=== PATIENT | female | born 1995 | race African-American/Black ===

== ENCOUNTER 2017-07-17 15:31 | Emergency (ER) | payer BC ==
[~2017-07-17 15:31] MED LIST: PYRI200T4 PO; SULF-154 PO
[2017-07-17 15:39] VITALS: BP 130/79; PULSE 110; RESP 14; TEMP 98.5; O2SAT 100
--- NOTE | 2017-07-17 16:12 | PD ---
HPI Chief Complaint: Construction Mgr Problem/Complaint Time Seen by Provider: 15:54 Travel History International Travel<30 days: No Contact w/Intl Traveler<30days: No Traveled to known affect area: No History of Present Illness HPI 21-year-old female with no significant medical history presents emergency department for evaluation of lower abdominal cramping intermittently 1 week. Patient has also been nauseous without vomiting. Patient states her last menstrual cycle was June 10, 2017. She denies any vaginal bleeding or discharge. She does report urinary frequency. No hematuria. No dysuria. Patient has no other symptoms to report. PFSH Past Medical History Medical History: Denies Significant Hx ?: Unknown Social History Alcohol Use: Yes Tobacco Use: No Allergies-Medications (Allergen,Severity, Reaction): Coded Allergies: No Known Allergies (Unverified , 06/04/14) Reported Meds & Prescriptions Reported Meds & Active Scripts Active Pyridium (Phenazopyridine HCl) 200 Mg Tab 200 Mg PO Q8 Septra Ds (Trimethoprim/Sulfamethoxazole) Tab 1 Tab PO BID Review of Systems Except as stated in HPI: all other systems reviewed are Neg Physical Exam Narrative GENERAL: Well-nourished female patient, no acute distress SKIN: Focused skin assessment warm/dry. HEAD: Atraumatic. Normocephalic. EYES: Pupils equal and round. No scleral icterus. No injection or drainage. ENT: No nasal bleeding or discharge. Mucous membranes pink and moist. NECK: Trachea midline. No JVD. CARDIOVASCULAR: Tachycardic rate and rhythm. No murmur appreciated. RESPIRATORY: No accessory muscle use. Clear to auscultation. Breath sounds equal bilaterally. GASTROINTESTINAL: Abdomen soft, non-tender, nondistended. Hepatic and splenic margins not palpable. No guarding. No rebound tenderness. GENITOURINARY: Normal external genitalia without lesions or erythema. Vaginal vault with a thick milky discharge.. Cervical os was closed without drainage. No cervical motion tenderness. Uterus nontender and nonenlarged. Bilateral adnexa nontender without masses. MUSCULOSKELETAL: No obvious deformities. No clubbing. No cyanosis. No edema. NEUROLOGICAL: Awake and alert. No obvious cranial nerve deficits. Motor grossly within normal limits. Normal speech. PSYCHIATRIC: Appropriate mood and affect; insight and judgment normal. Data Data Last Documented VS Vital Signs Date Time Temp Pulse Resp B/P (MAP) Pulse Ox O2 Delivery O2 Flow Rate FiO2 07/17/17 15:39 98.5 110 14 130/79 (96) 100 Orders Orders Urinalysis - C+S If Indicated (07/17/17 16:06) Ed Urine Pregnancytest Poc (07/17/17 16:06) Beta Hcg (Quant/Titer) (07/17/17 16:08) Complete Blood Count With Diff (07/17/17 16:08) Basic Metabolic Panel (Bmp) (07/17/17 16:08) Gc And Chlamydia Pcr (07/17/17 16:08) Complete Rh (07/17/17 16:08) Us Pelvis (Ques Preg/Ectopic) (07/17/17 ) Wet Prep Profile (07/17/17 16:08) Iv Access Insert/Monitor (07/17/17 16:08) Ecg Monitoring (07/17/17 16:08) Sodium Chlor 0.9% 1000 Ml Inj (Ns 1000 M (07/17/17 16:15) Ceftriaxone Inj (Rocephin Inj) (07/17/17 16:30) Azithromycin Powd Pack (Zithromax Powd P (07/17/17 16:30) MDM Medical Decision Making Medical Screen Exam Complete: Yes Emergency Medical Condition: Yes Medical Record Reviewed: Yes Differential Diagnosis intrauterine versus ectopic versus UTI versus menstrual cramps versus STD Narrative Course 21-year-old female presents emergency department for evaluation of lower abdominal cramping. Patient appears without distress. Vital signs are stable. Urine test is positive. Abdominal exam is benign. Discussed the patient my attending physician. We will move forward with lab work, ultrasound , and pelvic examination. Pelvic exam is with normal external genitalia. There is a large amount of a thick white milky discharge within the vaginal vault. Cervix is closed. There is no cervical motion tenderness. Patient will be treated empirically for gonorrhea and chlamydia. 1630 patient is signed out to my colleague Sathya Suero PA-C. Dispositional plan his judgment. Condition: Stable VerduzcoMiri almanza AJIT July 17, 2017 16:12
[2017-07-17] MEDS ORDERED: SODIUM CHLOR 0.9% 1000 ML INJ 1,000 ML IV ONE (16:15)
[2017-07-17] MEDS ORDERED: AZITHROMYCIN PWD FOR SUSP 1 GM PACKET PO ONE (16:30)
[2017-07-17] MEDS ORDERED: cefTRIAXone 250 MG VIAL IM ONE (16:30)
--- NOTE | 2017-07-17 16:31 | PD ---
Data Data Last Documented VS Vital Signs Date Time Temp Pulse Resp B/P (MAP) Pulse Ox O2 Delivery O2 Flow Rate FiO2 07/17/17 15:39 98.5 110 14 130/79 (96) 100 Orders Orders Urinalysis - C+S If Indicated (07/17/17 16:06) Ed Urine Pregnancytest Poc (07/17/17 16:06) Beta Hcg (Quant/Titer) (07/17/17 16:08) Complete Blood Count With Diff (07/17/17 16:08) Basic Metabolic Panel (Bmp) (07/17/17 16:08) Gc And Chlamydia Pcr (07/17/17 16:08) Complete Rh (07/17/17 16:08) Us Pelvis (Ques Preg/Ectopic) (07/17/17 ) Wet Prep Profile (07/17/17 16:08) Iv Access Insert/Monitor (07/17/17 16:08) Ecg Monitoring (07/17/17 16:08) Sodium Chlor 0.9% 1000 Ml Inj (Ns 1000 M (07/17/17 16:15) Ceftriaxone Inj (Rocephin Inj) (07/17/17 16:30) Azithromycin Powd Pack (Zithromax Powd P (07/17/17 16:30) MDM Supervised Visit with KATRIN: Yes Narrative Course I, Dr. Lange, have reviewed the advance practice practitioner's documentation and am in agreement, met with the patient face to face, made the diagnosis, and the medical decision making was done by me. *My assessment and Findings: I evaluated the patient. She will get workup to rule out ectopic . Clinical suspicion is low based on soft benign nontender abdomen and minimal symptoms. She does have pelvic cramping that comes and goes. She is only missed one menstrual period. Getting a beta hCG to start and will get transvaginal ultrasound if appropriate. Condition: Stable Frederic Lange MD July 17, 2017 16:31
[2017-07-17 17:02] LABS: BACTERIA, URINE RARE /hpf; BILIRUBIN, URINE NEG (NEG); BLOOD, URINE NEG (NEG); GLUCOSE,URINE NEG (NEG); KETONE, URINE 10 mg/dL (NEG); MUCUS URINE MOD /lpf (OCC); NITRITE,URINE NEG (NEG); PH, URINE 6.5 (5.0-8.5); SQUAMOUS EPITHELIAL CELL URINE 19 /hpf (0-5); URINE COLOR YELLOW (YELLW/STRAW); URINE LEUKOCYTE ESTERASE MOD (NEG)
[2017-07-17 17:23] LABS: BICARBONATE 21.7 MEQ/L (21.0-32.0); CALCIUM 9.1 MG/DL (8.5-10.1); CREATININE 0.99 MG/DL (0.50-1.00)
--- NOTE | 2017-07-17 18:54 | RADRPT ---
EXAM DATE/TIME: 07/17/2017 17:43 [facility] COMPARISON: No previous studies available for comparison. INDICATIONS : Ectopic. LAB(S): Beta-hC,268 MEDICAL HISTORY : Pelvic pain. SURGICAL HISTORY : None. ENCOUNTER: Initial ACUITY: 1 day PAIN SCORE: 3/10 LOCATION: Right pelvis MEASUREMENTS: UTERUS: 7.4 x 5.1 x 4.2 cm ENDOMETRIAL STRIPE: 10 mm RIGHT OVARY: 2.4 x 2.8 x 1.4 cm LEFT OVARY: 2.1 x 2.1 x 0.9 cm FREE FLUID: Yes cul de sac. CROWN RUMP LENGTH: n/a = WKS DAYS FINDINGS: UTERUS: There appears to be a tiny gestational sac in the endometrial cavity. To small for dates at this time . Otherwise the uterus is unremarkable. RIGHT OVARY: Ovary contains no mass or significant cystic lesion. follicular cyst. LEFT OVARY: Ovary contains no mass or significant cystic lesion. Follicular cysts. MISCELLANEOUS: Small amount of fluid in the cul-de-sac. CONCLUSION: 1. Small IUP in the endometrial cavity too small for dates. 2. Small amount of free fluid in the cul-de-sac. Tucker Stanley MD on July 17, 2017 at 18:49 Board Certified Radiologist. This report was verified electronically.
[2017-07-17 18:58] VITALS: BP 121/69
--- NOTE | 2017-07-17 19:13 | PD ---
Physical Exam Date Seen by Provider: July 17, 2017 Time Seen by Provider: 19:09 Data Data Last Documented VS Vital Signs Date Time Temp Pulse Resp B/P (MAP) Pulse Ox O2 Delivery O2 Flow Rate FiO2 07/17/17 18:58 121/69 (86) 07/17/17 15:39 98.5 110 14 100 Orders Orders Urinalysis - C+S If Indicated (07/17/17 16:06) Ed Urine Pregnancytest Poc (07/17/17 16:06) Beta Hcg (Quant/Titer) (07/17/17 16:08) Complete Blood Count With Diff (07/17/17 16:08) Basic Metabolic Panel (Bmp) (07/17/17 16:08) Gc And Chlamydia Pcr (07/17/17 16:08) Complete Rh (07/17/17 16:08) Wet Prep Profile (07/17/17 16:08) Iv Access Insert/Monitor (07/17/17 16:08) Ecg Monitoring (07/17/17 16:08) Sodium Chlor 0.9% 1000 Ml Inj (Ns 1000 M (07/17/17 16:15) Ceftriaxone Inj (Rocephin Inj) (07/17/17 16:30) Azithromycin Powd Pack (Zithromax Powd P (07/17/17 16:30) Us Pelvis (Ques Pr/Ect)W Trans (07/17/17 ) Ed Discharge Order (07/17/17 19:09) Labs Laboratory Tests Test 07/17/17 16:30 Urine Color YELLOW Urine Turbidity HAZY Urine pH 6.5 Urine Specific [place] 1.031 Urine Protein TRACE mg/dL Urine Glucose (UA) NEG mg/dL Urine Ketones 10 mg/dL Urine Occult Blood NEG Urine Nitrite NEG Urine Bilirubin NEG Urine Urobilinogen 4.0 MG/DL Urine Leukocyte Esterase MOD Urine RBC 1 /hpf Urine WBC 4 /hpf Urine Squamous Epithelial Cells 19 /hpf Urine Bacteria RARE /hpf Urine Mucus MOD /lpf Microscopic Urinalysis Comment CULT NOT INDICATED Clue Cells (Wet Prep) NONE SEEN Vaginal Trichomonas (Wet Prep) NONE SEEN Vaginal Yeast (Wet Prep) NONE SEEN Blood Urea Nitrogen 13 MG/DL Creatinine 0.99 MG/DL Random Glucose 82 MG/DL Calcium Level 9.1 MG/DL Sodium Level 138 MEQ/L Potassium Level 4.3 MEQ/L Chloride Level 106 MEQ/L Carbon Dioxide Level 21.7 MEQ/L Anion Gap 10 MEQ/L Estimat Glomerular Filtration Rate 84 ML/MIN Human Chorionic Gonadotropin, Quant 1268 MIU/ML [facility] Medical Record Reviewed: Yes Supervised Visit with KATRIN: Yes Interpretation(s) Laboratory Tests Test 07/17/17 16:30 Urine Color YELLOW Urine Turbidity HAZY Urine pH 6.5 Urine Specific [place] 1.031 Urine Protein TRACE mg/dL Urine Glucose (UA) NEG mg/dL Urine Ketones 10 mg/dL Urine Occult Blood NEG Urine Nitrite NEG Urine Bilirubin NEG Urine Urobilinogen 4.0 MG/DL Urine Leukocyte Esterase MOD Urine RBC 1 /hpf Urine WBC 4 /hpf Urine Squamous Epithelial Cells 19 /hpf Urine Bacteria RARE /hpf Urine Mucus MOD /lpf Microscopic Urinalysis Comment CULT NOT INDICATED Clue Cells (Wet Prep) NONE SEEN Vaginal Trichomonas (Wet Prep) NONE SEEN Vaginal Yeast (Wet Prep) NONE SEEN Blood Urea Nitrogen 13 MG/DL Creatinine 0.99 MG/DL Random Glucose 82 MG/DL Calcium Level 9.1 MG/DL Sodium Level 138 MEQ/L Potassium Level 4.3 MEQ/L Chloride Level 106 MEQ/L Carbon Dioxide Level 21.7 MEQ/L Anion Gap 10 MEQ/L Estimat Glomerular Filtration Rate 84 ML/MIN Human Chorionic Gonadotropin, Quant 1268 MIU/ML Last 24 hours Impressions Pelvis Ultrasound 07/17/17 0000 Signed Impressions: Service Date/Time: Monday, July 17, 2017 17:43 - CONCLUSION: 1. Small IUP in the endometrial cavity too small for dates. 2. Small amount of free fluid in the cul-de-sac. Tucker Stanley MD Differential Diagnosis . Narrative Course I was asked to review the patient's ultrasound report. Patient is here with complaints of lower pelvic discomfort. She has had no vaginal discharge or abnormal bleeding. I was asked to rule out ectopic . The patient's quantitative hCG is noted her ultrasound reveals a intrauterine too early to determine dates. There is a small amount of fluid in the pelvis. No evidence of obvious ectopic. Patient is advised to follow-up and have a repeat ultrasound in next 1-2 weeks. Diagnosis Primary Impression: First trimester Referrals: Sebastián Kerns MD 1 week Patient Instructions: General Instructions Additional Instruction: Rest. Increase fluids. Follow-up with a BANKING TEACHER in the next week for reevaluation. Repeat ultrasound in 1-2 weeks. Return to the ER if any vaginal bleeding or increasing pain. Med/Other Pt SpecificInfo: No Meds Exist/No RX given Disposition: 01 DISCHARGE HOME Condition: Stable Marcelino Lopez July 17, 2017 19:13
== END 2017-07-17 19:48 | disposition home or self-care (01) ==
LOC: NEPD 15:31
DX: R10.9 Unspecified abdominal pain (principal); R11.0 Nausea; Z33.1 Pregnant state, incidental
CPT/HCPCS: 76700; 76817; 80048; 81001; 84702; 84703; 86901; 87210; 87491; 87591; 96372; 99284; J0696